=== PATIENT | female | born 1950 | race Caucasian/White ===

== ENCOUNTER → 2016-05-08 | Outpatient (CLI) | payer OTHER, BC | LOC: BHFA 13:15 | PROVIDERS: ATTEND Internal Medicine Cardiovascular Disease | DX: I34.1 Nonrheumatic mitral (valve) prolapse (principal) ==

== ENCOUNTER → 2018-06-19 | Outpatient (CLI) | payer OTHER, BC | LOC: FIMAGING 13:43 | PROVIDERS: ATTEND Family Medicine | DX: Z12.31 Encounter for screening mammogram for malignant neoplasm of breast (principal) ==

== ENCOUNTER → 2018-06-24 | Outpatient (CLI) | payer OTHER, BC | LOC: FIMAGING 10:10 | PROVIDERS: ATTEND Family Medicine | DX: R92.0 Mammographic microcalcification found on diagnostic imaging of breast (principal) ==